=== PATIENT | female | born 1955 | race Caucasian/White ===

== ENCOUNTER → 2019-12-10 | Outpatient (CLI) | payer BC ==
[~2019-12-10] MED LIST: ADULT LOW DOSE81 MG PO; CELEBREX 200 M200 MG PO; NORCO 5-325 TA1 EACH PO; VERAPAMIL E.R240 M1 PO
== END ==
LOC: LAB 08:14
PROVIDERS: ATTEND Student in an Organized Health Care Education/Training Program
DX: Z01.812 Encounter for preprocedural laboratory examination (principal); Z11.59 Encounter for screening for other viral diseases